=== PATIENT | female | born 2000 | race Caucasian/White ===

== ENCOUNTER 2023-01-05 08:38 | Emergency (ER) | payer OTHER ==
[2023-01-05 08:56] VITALS: O2SAT 100
--- NOTE | 2023-01-05 09:06 | ED Physician Documentation ---
PD HPI NVD - Stated complaint Stated Complaint: V/F/D - Chief complaint Chief Complaint: Abd Pain - History obtained from History obtained from: Patient - History of Present Illness Timing - onset: Enter time (529), Today Timing - duration: Hours Timing - details: Abrupt onset, Still present Associated symptoms: Abdominal pain, Other (diarrhea and vomiting) Contributing factors: Other (prior history of pyelo and sepsis). No: Sick contact, Bad food, Travel, Recent antibiotics, Alcohol use, Anticoagulated, Diabetes Improved by: Laying still, Vomiting Worsened by: Moving, Breathing, Position, Palpation Similar symptoms before: Diagnosis (UTI with sepsis) Recently seen: Not recently seen (recently moved here from [place]) - Additonal information Additional information: 22-year-old Fiona Castellanos presents to the emergency department this morning with acute left lower quadrant abdominal pain left flank pain nausea vomiting and diarrhea. She has a prior history of sepsis from urinary tract infection x2 and she has a prior infected ovarian cyst as well. She denies urinary tract symptoms now. She is resistant to CT scanning as she has had 9 prior scans. Review of Systems Constitutional: denies: Fever Eyes: denies: Decreased vision Ears: denies: Ear pain Nose: denies: Congestion Throat: denies: Sore throat Cardiac: denies: Chest pain / pressure, Palpitations Respiratory: denies: Dyspnea, Cough GI: reports: Abdominal Pain, Nausea, Vomiting, Diarrhea : denies: Dysuria, Frequency Skin: denies: Rash Musculoskeletal: reports: Back pain. denies: Neck pain, Extremity pain Neurologic: denies: Generalized weakness, Focal weakness, Numbness PD PAST MEDICAL HISTORY - Present Medications Home Medications: Ambulatory Orders Medication Instructions Recorded Confirmed HYDROcod/ACETAM 5/325 [[place] 5/325] 1 - 2 tablet PO Q6H PRN #14 tablet 01/05/23 Ondansetron Odt [Zofran] 4 mg TL Q6H PRN #10 tablet 01/05/23 - Allergies Allergies/Adverse Reactions: Allergies Allergy/AdvReac Type Severity Reaction Status Date / Time No Known Drug Allergies Allergy Verified 01/05/23 08:51 PD ED PE NORMAL - Vitals Vital signs reviewed: Yes (Normal) - General General: Alert and oriented X 3, Well developed/nourished, Other (Appears to be in pain panting with each breath) - HEENT HEENT: Atraumatic, PERRL, EOMI - Neck Neck: Supple, no meningeal sign, No bony TTP - Cardiac Cardiac: No murmur, Other (Tachycardia to 100 and regular) - Respiratory Respiratory: No respiratory distress, Clear bilaterally - Abdomen Abdomen: Soft, Non distended, No organomegaly, Other (There is tenderness to palpation of the left lower quadrant and tenderness to palpation of the left flank. Left flank pain is more tender than the left lower quadrant. No guarding or rebound.) - Back Back: No CVA TTP, No spinal TTP - Derm Derm: Normal color, Warm and dry, No rash - Extremities Extremities: No deformity, No edema - Neuro Neuro: Alert and oriented X 3, gym supervisor 2-12 intact, No motor deficit, No sensory deficit, Normal speech Eye Opening: Spontaneous Motor: Obeys Commands Verbal: Oriented GCS Score: 15 - Psych Psych: Normal mood, Normal affect Results - Vitals Vitals: Vital Signs - 24 hr 01/05/23 08:48 Temperature 36.5 C Heart Rate 87 Respiratory 20 Rate Blood Pressure 127/78 O2 Saturation 100 Oxygen O2 Source Room air - Labs Labs: Laboratory Tests 01/05/23 01/05/23 01/05/23 09:13 09:13 09:13 WBC 8.2 RBC 4.85 Hgb 14.2 Hct 42.2 MCV 87.0 MCH 29.3 MCHC 33.6 RDW 12.6 Plt Count 142 MPV 13.0 H Neut # (Auto) 5.9 Lymph # (Auto) 1.8 [place] # (Auto) 0.3 Eos # (Auto) 0.1 Baso # (Auto) 0.0 Absolute Nucleated RBC 0.00 Nucleated RBC % 0.0 Sodium 137 Potassium 3.9 Chloride 105 Carbon Dioxide 23 Anion Gap 9.0 BUN 9 Creatinine 0.7 Estimated GFR (MDRD) 103 Glucose 127 H Lactic Acid 1.9 Calcium 10.2 Total Bilirubin 0.5 AST 15 ALT 18 Alkaline Phosphatase 63 Total Protein 7.8 Albumin 5.0 Globulin 2.8 Albumin/Globulin Ratio 1.8 Lipase 25 Urine Color Urine Clarity Urine pH Ur Specific [place] Urine Protein Urine Glucose (UA) Urine Ketones Urine Occult Blood Urine Nitrite Urine Bilirubin Urine Urobilinogen Ur Leukocyte Esterase Ur Microscopic Review Urine Culture Comments Urine HCG, Qual 01/05/23 01/05/23 09:47 09:47 WBC RBC Hgb Hct MCV MCH MCHC RDW Plt Count MPV Neut # (Auto) Lymph # (Auto) [place] # (Auto) Eos # (Auto) Baso # (Auto) Absolute Nucleated RBC Nucleated RBC % Sodium Potassium Chloride Carbon Dioxide Anion Gap BUN Creatinine Estimated GFR (MDRD) Glucose Lactic Acid Calcium Total Bilirubin AST ALT Alkaline Phosphatase Total Protein Albumin Globulin Albumin/Globulin Ratio Lipase Urine Color YELLOW Urine Clarity CLEAR Urine pH 7.5 Ur Specific [place] 1.015 Urine Protein TRACE Urine Glucose (UA) NEGATIVE Urine Ketones NEGATIVE Urine Occult Blood NEGATIVE Urine Nitrite NEGATIVE Urine Bilirubin NEGATIVE Urine Urobilinogen 0.2 (NORMAL) Ur Leukocyte Esterase NEGATIVE Ur Microscopic Review NOT INDICATED Urine Culture Comments NOT INDICATED Urine HCG, Qual NEGATIVE - Rads (name of study) retroperitoneal ultrasound Relevant Findings:: Prelim report reviewed (Impression: Unremarkable bilateral renal ultrasound. No hydronephrosis.), EMP independent interpretation of test Pelvic ultrasound Relevant Findings:: Prelim report reviewed (Pression: Greater than 12 follicles noted in each ovary. This finding has been correlated with polycystic ovarian syndrome in the proper clinical setting. Minimal free fluid in the pelvis is probably physiologic.), EMP independent interpretation of test PD Medical Decision Making - ED course Complexity details: reviewed results, re-evaluated patient, considered differential, d/w patient, d/w family Reviewed Lab Results: We revealed a complete pleat blood count showing a normal white blood cell count normal hemoglobin hematocrit and platelets chemistries were unremarkable normal electrolytes normal kidney and liver function lactate of 1.9 urinalysis clear specific gravity 1.015 and negative hCG. These laboratory studies are benign in appearance and do not contribute to a specific diagnosis. They do correlate with a presentation with severe pain related to a generally benign condition which appears to be polycystic ovary and pain 2 weeks after her last menses. ED course: 22-year-old female with a prior history of colitis on colonoscopy has developed again diarrhea which has been persistent over a week and which has developed some bleeding. Historically the patient's condition is concerning for ulcerative colitis. She indicates frequent diarrhea related to stress. Today we found the patient to have some volume depletion and she was administered saline. She was administered 125 mg of solute Medrol. We will place the course patient on a course of prednisone and metronidazole. We are expecting some remission associated with this and the patient will need follow-up for formal diagnosis. Today I am diagnosing ulcerative colitis. The patient has not had biopsy. Departure - Departure Disposition: 01 Home, Self Care Clinical Impression: Cyst of ovary Qualifiers: Laterality: left Qualified Code(s): N83.202 - Unspecified ovarian cyst, left side Condition: Stable Instructions: ED Cyst Ovarian Follow-Up: Nguyễn Gloria MD [Provider Admit Priv/Credential] - Prescriptions: HYDROcod/ACETAM 5/325 [[place] 5/325] 1 - 2 tablet PO Q6H PRN #14 tablet PRN Reason: Pain Ondansetron Odt [Zofran] 4 mg TL Q6H PRN #10 tablet PRN Reason: Nausea / Vomiting Comments: Fiona, today it looks like an ovarian cyst is the cause of your pain. This will usually cause a pain for about 2 days and usually about 2 weeks after your last period. Our expectation today with treatment is that your pain resolves over the next 2 days. If you have worsening of your pain or development of new symptoms return to see us or follow-up with the [facility] doctor. My recommendation is to follow-up with the [facility] doctor for reevaluation to potentially consider alternative control for suppression of cysts.I have E scribed some pain medication and nausea medicine to the [facility] in [place].
[2023-01-05 09:18] LABS: BASOPHILS % (AUTO) 0.2 %; EOSINOPHILS # (AUTO) 0.1 10^3/uL (0.0-0.7); EOSINOPHILS % (AUTO) 1.3 %; HCT - HEMATOCRIT 42.2 % (37.0-47.0); HGB - HEMOGLOBIN 14.2 g/dL (12.0-16.0); LYMPHOCYTES # (AUTO) 1.8 10^3/uL (1.5-3.5); LYMPHOCYTES % (AUTO) 22.3 %; MEAN CORPUSCULAR HEMOGLOBIN 29.3 pg (27.0-31.0); MEAN CORPUSCULAR HGB CONC 33.6 g/dL (32.0-36.0); MONOCYTES # (AUTO) 0.3 10^3/uL (0.0-1.0); MONOCYTES % (AUTO) 3.4 %; NEUTROPHILS # (AUTO) 5.9 10^3/uL (1.5-6.6); NEUTROPHILS % (AUTO) 72.6 %; PLT - PLATELET COUNT 142 10^3/uL (130-450); RED BLOOD COUNT 4.85 10^6/uL (4.20-5.40); RED CELL DISTRIBUTION WIDTH 12.6 % (12.0-15.0); WHITE BLOOD COUNT 8.2 x10^3/uL (4.8-10.8)
[2023-01-05] MEDS: KETOROLAC 30 MG/ML VIAL IVP STA (09:21)
[2023-01-05 09:35] LABS: ALBUMIN/GLOBULIN RATIO 1.8 (1.0-2.2); BILIRUBIN,TOTAL 0.5 mg/dL (0.2-1.0); CALCIUM 10.2 mg/dL (8.5-10.3); CREATININE 0.7 mg/dL (0.6-1.3); POTASSIUM 3.9 mmol/L (3.5-4.5); TOTAL PROTEIN 7.8 g/dL (6.4-8.9)
[2023-01-05 09:50] LABS: BILIRUBIN,URINE NEGATIVE (NEGATIVE); GLUCOSE, URINE (UA) NEGATIVE (NEGATIVE); KETONES,URINE (UA) NEGATIVE (NEGATIVE); LEUKOCYTE ESTERASE, URINE NEGATIVE (NEGATIVE); NITRITE,URINE NEGATIVE (NEGATIVE); OCCULT BLOOD,URINE NEGATIVE (NEGATIVE); PH,URINE 7.5 PH (5.0-7.5); PROTEIN,URINE TRACE mg/dL (NEGATIVE); UROBILINOGEN,URINE 0.2 (NORMAL) E.U./dL (NORMAL)
[2023-01-05 09:51] LABS: CLARITY,URINE CLEAR (CLEAR)
[2023-01-05] MEDS: HYDROmorphone 1 MG/ML CARPUJECT IVP STA (11:35)
[2023-01-05] MEDS: ONDANSETRON 4 MG/2 ML VIAL IVP STA (11:35)
--- NOTE | 2023-01-05 12:25 | Ultrasound Report ---
PROCEDURE: Retroperitoneal INDICATIONS: L flank pain TECHNIQUE: Real-time scanning was performed of the retroperitoneal organs, with image documentation. COMPARISON: None. FINDINGS: Kidneys: Kidneys are normal in size. Right kidney measures 11.6 cm long; left kidney measures 1.0 c m long. Right renal cortical thickness is 11.1 cm; left renal cortical thickness is 1.0 cm. No mera d masses, hydronephrosis, or nephrolithiasis. Miscellaneous: No free abdominal fluid. IMPRESSION: Unremarkable bilateral renal ultrasound. No hydronephrosis. Reviewed by: Williams Sandhu MD on 01/05/2023 11:24 AM [facility] Approved by: Williams Sandhu MD on 01/05/2023 11:24 AM ALON[facility] Station ID: [id number]
[2023-01-05 12:47] LABS: HCG UR QUAL NEGATIVE
--- NOTE | 2023-01-05 13:18 | Ultrasound Report ---
PROCEDURE: Pelvic w/Transvag+Doppler Ltd INDICATIONS: severe pelvic pain TECHNIQUE: Transabdominal/transvaginal ultrasound of the pelvis was obtained. Endovaginal scanning wa s necessary due to incomplete visualization of the adnexal and endometrial structures by transabdomin al scanning. COMPARISON: None. FINDINGS: Uterine size: Uterus measures 5.7 x 2.8 x 3.1 cm, and is anteverted. Myometrium: The myometrium is heterogenous. Endometrium: The endometrium measures 3 mm in combined thickness. Right ovary: The right ovary measures 3.4 x 3.2 x 2.1 cm. Calculated ovarian volume of 11.7 cc. Gr eater than 12 follicles Left ovary: The left ovary measures 3.1 x 2.0 x 1.9 cm. Calculated ovarian volume 5.9 cc. Greater t coates 12 follicles Other: Positive free fluid in pelvis IMPRESSION: Greater than 12 follicles noted in each ovary. This finding has been correlated with polycystic ovari an syndrome in the proper clinical setting. Minimal free fluid in pelvis is probably physiologic Reviewed by: Williams Sandhu MD on 01/05/2023 12:17 PM [facility] Approved by: Williams Sandhu MD on 01/05/2023 12:17 PM [facility] Station ID: [id number]
[2023-01-05 13:59] VITALS: BP 143/85
== END 2023-01-05 13:52 | disposition home or self-care (01) ==
LOC: ED 08:38
DX: N83.202 Unspecified ovarian cyst, left side (principal)
CPT/HCPCS: 36415; 80053; 81001; 81003; 81025; 83605; 83690; 85025; 87040; 87086; 93976; 96374; 96375; 99284

== ENCOUNTER 2023-01-08 06:35 | Emergency (ER) | payer OTHER ==
[2023-01-08] MEDS ORDERED: LORazepam 2 MG/ML VIAL IVP STA ×2 (07:52→09:40)
[2023-01-08] MEDS ORDERED: DROPERIDOL 5 MG/2 ML VIAL IVP STA (07:52)
[2023-01-08] MEDS ORDERED: HYDROmorphone 0.5 MG/0.5 ML SYRINGE IVP STA (07:52)
[2023-01-08] MEDS ORDERED: SODIUM CHLORIDE 0.9% 1,000 ML IV STA (07:52)
--- NOTE | 2023-01-08 07:52 | ED Physician Documentation ---
PD HPI ABD PAIN - Stated complaint Stated Complaint: SYNCOPE/VOMIT - Chief complaint Chief Complaint: Abd Pain - History obtained from History obtained from: Patient - Additional information Additional information: The patient returns to the emergency department for chief complaint of ongoing left lower quadrant pain that she feels is gotten worse. She states that she was seen here 4 days ago and was diagnosed with a left ovarian cyst. She appears to been discharged with prednisone and Zofran and she states that she has not been able to hold any of her medications down since. She started vomit ing again about 2 hours after she got home from the ED and states that anything she tries to put in her stomach comes back up. She denies any fevers or chills. No development of new symptoms since her last visit per se. The patient states that she has not had any surgeries on her abdomen but has had a lot of CT scans. No other complaints at this time. PD PAST MEDICAL HISTORY - Present Medications Home Medications: Ambulatory Orders Medication Instructions Recorded Confirmed HYDROcod/ACETAM 5/325 [[place] 5/325] 1 - 2 tablet PO Q6H PRN #7 tablet 01/08/23 01/13/23 Bcp 1 tab PO DAILY 01/13/23 Meloxicam [Mobic] 7.5 mg PO BID 10 Days #20 tablet 01/13/23 Ondansetron Odt [Zofran] 4 mg TL Q6H PRN #10 tablet 01/13/23 Oxycodone HCl/Acetaminophen 1 each PO Q8H PRN #18 tablet 01/13/23 [Percocet 5-325 mg Tablet] Prochlorperazine Supp [Compazine 25 mg [place] Q6H PRN #5 supp 01/13/23 Supp] - Allergies Allergies/Adverse Reactions: Allergies Allergy/AdvReac Type Severity Reaction Status Date / Time No Known Drug Allergies Allergy Verified 01/13/23 06:32 PD ED PE NORMAL - Vitals Vital signs reviewed: Yes - General General: Alert and oriented X 3, Well developed/nourished, Other (The patient is rocking and crying in bed but otherwise in no distress.) - HEENT HEENT: Atraumatic, PERRL, EOMI, Moist mucous membranes - Neck Neck: Supple, no meningeal sign - Cardiac Cardiac: RRR, No murmur, Strong equal pulses - Respiratory Respiratory: No respiratory distress, Clear bilaterally - Abdomen Abdomen: Soft, Non distended, Other (Tenderness palpation left lower quadrant, no rebound or guarding.) - Derm Derm: Warm and dry - Extremities Extremities: No deformity, No edema - Neuro Neuro: Alert and oriented X 3, automobile lights assembler 2-12 intact, Normal speech - Psych Psych: Normal mood, Normal affect Results - Vitals Vitals: Oxygen O2 Source Room air - Labs Labs: Laboratory Tests 01/08/23 01/08/23 07:40 07:40 WBC 6.7 RBC 4.79 Hgb 14.0 Hct 41.6 MCV 86.8 MCH 29.2 MCHC 33.7 RDW 12.4 Plt Count 157 MPV 12.5 H Neut # (Auto) 4.3 Lymph # (Auto) 1.9 [place] # (Auto) 0.3 Eos # (Auto) 0.1 Baso # (Auto) 0.0 Absolute Nucleated RBC 0.00 Nucleated RBC % 0.0 Sodium 138 Potassium 3.8 Chloride 104 Carbon Dioxide 25 Anion Gap 9.0 BUN 10 Creatinine 0.7 Estimated GFR (MDRD) 103 Glucose 125 H Calcium 10.3 Total Bilirubin 0.6 AST 13 ALT 15 Alkaline Phosphatase 59 Total Protein 7.8 Albumin 5.1 Globulin 2.7 Albumin/Globulin Ratio 1.9 Lipase 18 PD Medical Decision Making - ED course Complexity details: reviewed old records, reviewed results, re-evaluated patient, considered differential, d/w patient, d/w family ED course: The patient was worked up with with laboratory studies and treated symptomatically with IV fluids, antiemetics, and analgesia. I d/w her that at this point, things still look good, and the only way to further evaluate is with a CT. However, the pt does not want to have a CT, because she has had so many already, and is satisfied for now that her blood work looks good. We have discussed the usual indications for return. Departure - Departure Disposition: 01 Home, Self Care Clinical Impression: Vomiting Abdominal pain Qualifiers: Abdominal location: left lower quadrant Qualified Code(s): R10.32 - Left lower quadrant pain Condition: Stable Instructions: ED Nausea Vomiting Prescriptions: HYDROcod/ACETAM 5/325 [[place] 5/325] 1 - 2 tablet PO Q6H PRN #7 tablet PRN Reason: Pain Comments: All of your labs look great. Your records from your last visit have been reviewed here and most likely, the pain on the left is coming from your ovarian cyst. , The only other testing modality that we have to be able to evaluate the exact potential cause of your left lower abdominal pain is CT scan; however, you have declined to have this done today. This is reasonable at this point, given the duration of the pain, and the lack of escalation of your white blood cell count. We have given you medication for nausea and pain here in the emergency department. A prescription for antinausea rectal suppositories, as well as a 3- day pain patch, has been electronically transmitted to the [facility] pharmacy in [place]. You may pick your medications up there after you leave here. Please follow-up with your primary doctor for further concerns. Forms: PCP List Discharge Date/Time: 01/08/23 10:23
[2023-01-08 08:05] LABS: BASOPHILS % (AUTO) 0.4 %; EOSINOPHILS # (AUTO) 0.1 10^3/uL (0.0-0.7); EOSINOPHILS % (AUTO) 1.9 %; HCT - HEMATOCRIT 41.6 % (37.0-47.0); LYMPHOCYTES # (AUTO) 1.9 10^3/uL (1.5-3.5); LYMPHOCYTES % (AUTO) 28.4 %; MEAN CORPUSCULAR HEMOGLOBIN 29.2 pg (27.0-31.0); MEAN CORPUSCULAR HGB CONC 33.7 g/dL (32.0-36.0); MEAN CORPUSCULAR VOLUME 86.8 fL (81.0-99.0); MEAN PLATELET VOLUME 12.5 fL (7.9-10.8); MONOCYTES # (AUTO) 0.3 10^3/uL (0.0-1.0); MONOCYTES % (AUTO) 5.1 %; NEUTROPHILS # (AUTO) 4.3 10^3/uL (1.5-6.6); NEUTROPHILS % (AUTO) 64.1 %; PLT - PLATELET COUNT 157 10^3/uL (130-450); RED BLOOD COUNT 4.79 10^6/uL (4.20-5.40); RED CELL DISTRIBUTION WIDTH 12.4 % (12.0-15.0); WHITE BLOOD COUNT 6.7 x10^3/uL (4.8-10.8)
[2023-01-08 08:18] LABS: ALBUMIN 5.1 g/dL (3.2-5.5); ALBUMIN/GLOBULIN RATIO 1.9 (1.0-2.2); BILIRUBIN,TOTAL 0.6 mg/dL (0.2-1.0); CALCIUM 10.3 mg/dL (8.5-10.3); CREATININE 0.7 mg/dL (0.6-1.3); POTASSIUM 3.8 mmol/L (3.5-4.5); TOTAL PROTEIN 7.8 g/dL (6.4-8.9)
[2023-01-08 10:24] VITALS: BP 112/67; O2SAT 100
== END 2023-01-08 10:23 | disposition home or self-care (01) ==
LOC: ED 06:35
DX: R10.32 Left lower quadrant pain (principal); R11.2 Nausea with vomiting, unspecified
CPT/HCPCS: 36415; 80053; 83690; 85025; 96374; 96375; 99283; J1170; J2060